=== PATIENT | male | born 1955 | race Caucasian/White ===

== ENCOUNTER → 2019-12-10 | Outpatient (CLI) | payer OTHER ==
[~2019-12-10] MED LIST: IBUP200T77 PO; TIOT18CA IH
== END | disposition home or self-care (01) ==
LOC: LAB 15:36
PROVIDERS: ATTEND Orthopaedic Surgery Sports Medicine
DX: Z11.59 Encounter for screening for other viral diseases (principal)
CPT/HCPCS: U0003-CS

== ENCOUNTER 2019-12-15 05:55 | Day surgery (SDC) | payer OTHER ==
[~2019-12-15] VITALS: Ht 188 cm; Wt 82.6 kg
[2019-12-15] MEDS ORDERED: IV RINGERS,LACTATED 1000ML 1,000 ML IV SCH (07:00)
[2019-12-15] MEDS ORDERED: fentaNYL PF VIAL 100 MCG/2 ML VIAL IV PRN (07:00)
[2019-12-15] MEDS ORDERED: PROCHLORPERAZINE 10 MG/2 ML VIAL. IV PRN (07:00)
[2019-12-15] MEDS ORDERED: ONDANSETRON PF 4 MG/2 ML VIAL. IV PRN (07:00)
[2019-12-15] MEDS ORDERED: ceFAZolin 2GM PREMIX 2 GM/50 ML BAG IV ONE (07:00)
[2019-12-15] MEDS ORDERED: HYDROmorphone 2 MG/ML VIAL IV PRN (07:00)
[2019-12-15] MEDS ORDERED: LIDOCAINE 2% PF 5 ML VIAL. ONE (07:04)
[2019-12-15] MEDS ORDERED: PROPOFOL 10 MG/ML (20ML) VIAL. IV ONE (07:04)
[2019-12-15] MEDS ORDERED: ROCURONIUM 50 MG/5 ML VIAL. ONE (07:05)
[2019-12-15] MEDS ORDERED: BUPIVACAINE MPF 0.5% 30 ML VIAL. ONE ×2 (07:05→07:10)
[2019-12-15] MEDS ORDERED: MIDAZOLAM HCL/PF 2 MG/2 ML VIAL. ONE (07:05)
[2019-12-15] MEDS ORDERED: fentaNYL PF VIAL 100 MCG/2 ML VIAL ONE ×2 (07:05→09:37)
[2019-12-15] MEDS ORDERED: LIDOCAINE 1% Multi-Dose 20 ML VIAL. ONE (07:10)
[2019-12-15] MEDS ORDERED: EPINEPHrine VIAL 30 MG/30 ML VIAL ONE (07:17)
--- NOTE | 2019-12-15 07:31 | DISCH ---
DISCHARGE INSTRUCTIONS Condition on Discharge Condition on Discharge: Stable Activity After Discharge Activity Instructions for Disc: Other, see below Other activity instructions: arm to remain in sling Bathing Instructions: Shower-keep dressing dry Weight Bearing Status after Di: Non weight bearing Diet after Discharge Diet after Discharge: Regular Wound Incision Care Wound/Incision Care: Ice to area for comfort, Keep wound/cast CDI, Change dressing Other wound/incision instructi: ok to change dressing after 2 days Contacting the DRNadira after DC Call your doctor for: Concerns you may have Follow-Up Follow up with: Darya in 2 wks LUZMA WEAVER II, MD Dec 15, 2019 07:31
[2019-12-15] MEDS ORDERED: PHENYLEPHRINE 10 MG/ML VIAL. ONE (07:47)
[2019-12-15] MEDS ORDERED: ONDANSETRON PF 4 MG/2 ML VIAL. ONE (07:47)
[2019-12-15] MEDS ORDERED: DEXAMETHASONE SOD PHOS 4 MG/ML VIAL ONE (07:47)
[2019-12-15] MEDS ORDERED: HYDROmorphone 2 MG/ML VIAL ONE (08:29)
[2019-12-15] MEDS ORDERED: NEOSTIGMINE METHYLSULFATE 5 MG/5 ML SYRINGE. ONE (08:41)
[2019-12-15] MEDS ORDERED: GLYCOPYRROLATE 1 MG/5 ML VIAL. ONE (08:42)
--- NOTE | 2019-12-15 09:24 | PDOC4 ---
Operative Note Operative Note Date of procedure: 12/15/2019 Surgeon: Jerm[facility] [employer] Foreman: Milind Cobos Preoperative diagnosis: Left rotator cuff tear Postoperative diagnosis: Same Procedure performed: Arthroscopic left rotator cuff repair Anesthesia: General plus regional nerve block Findings: #1 large rotator cuff tear, supraspinatus and infraspinatus, retracted to mid humeral head 2. Minimal grade 1 changes at glenohumeral joint cartilage 3. No loose bodies 4. Labrum intact circumferentially 5. Biceps tendon unremarkable pathology Complications: None Blood loss: 5 mL Components inserted: [employer] helacoil x 3, footprint for lateral row fixation x 2 Reason for procedure: Patient is a very pleasant gentleman who had a fall while at work onto an outstretched left upper extremity and had pain and dysfunction at his left shoulder secondary to this. Prior to this injury he had no shoulder complaints. Clinical and radiographic examination including MRI were consistent with the preoperative diagnosis and we discussed proceeding with rotator cuff repair as conservative therapies had not helped. Description of procedure: Patient was greeted in the preoperative area by myself or the correct extremity was verified and marked. He was taken to the operative suite after placement of a regional nerve block by the anesthesiology team. Once in the operating room, he was transferred gently supine to the operating table and had successful induction of a general anesthetic. We then set him up in a beachchair position, maintaining C-spine in a neutral position and he had a large pad under his legs. We then proceeded to prep and drape left upper extremity and shoulder girdle in our usual sterile fashion including Ioban at the periphery. I then palpated marked surface anatomy and zeina lines for my planned portals. I then incised skin after localizing a posterior superior portal with a spinal needle and introduce my blunt arthroscopic trocar into the glenohumeral joint. I then used a spinal needle to localize an anterosuperior portal, incising skin in accordance with this and dilating this hole. I then introduced my probe into the glenohumeral joint and conducted my diagnostic arthroscopy with above-noted findings. After this, used a spinal needle to localize a lateral portal and introduced my shaver to debride the footprint from the intra-articular vantage point as well as debride the rotator cuff tendon. I then reposition my camera into the subacromial space and using combination of shaver and electrocautery device performed a bursectomy. I then inspected the rotator cuff tear from this point, it was easily mobile. I then began to place my 3 anchors from posterior to anterior. It should be noted I had created an accessory anterolateral posterior lateral portals for suture management. After placing my 3 anchors, I began to shuttle them through in a simple configuration using my suture passing device. Once they were all shuttle, I began to tie them down from posterior to anterior, saving one limb from each to incorporate into my lateral row repair. After tying them all down, I took 3 sutures from po sterior and incorporate these into a footprint device for lateral fixation and then repeated this maneuver more anteriorly from anterior 3 sutures. The tear was stable to probing and gentle rotation of the arm. All excess arthroscopic fluid and any loose debris was removed with the shaver at this point. We took our final pictures. We removed the remainder of the arthroscopic fluid and equipment. The portals were closed with simple interrupted 3-0 nylon. Patient tolerated surgery well. No complications. At the conclusion, the arm was cleansed and dried a sterile dressing was applied followed by an abduction pillow sling. He was laid supine and transferred gently supine to the recovery room cart and taken to the PACU in stable and extubated condition. Postoperative plan is to discharge him home, nonweightbearing, his arms to remain in sling. We will get him started on PT when I see him in 2 weeks. JERMAINE WEAVER II, MD Dec 15, 2019 09:24
[2019-12-15] MEDS ORDERED: OXYC1TAB15 PO (09:34)
[2019-12-15] MEDS ORDERED: ONDA8TAB9 PO (09:37)
[2019-12-15] MEDS ORDERED: DOCU-109 PO (09:37)
[2019-12-15] MEDS: fentaNYL PF VIAL 100 MCG/2 ML VIAL IV PRN ×2 (09:39→09:44)
[2019-12-15] MEDS ORDERED: oxyCODONE/APAP 5/325 1 TAB TABLET PO ONE (09:45)
[2019-12-15] MEDS ORDERED: MORPHINE SULFATE 2 MG/ML VIAL. ONE (09:52)
[2019-12-15] MEDS: MORPHINE SULFATE 2 MG/ML VIAL. IV PRN ×2 (09:55→10:01)
[2019-12-15 10:20] VITALS: BP 140/80
== END 2019-12-15 10:55 | disposition home or self-care (01) ==
LOC: SURG 05:55 → EDUNIT# 07:30 → SURG 10:55
PROVIDERS: ATTEND Orthopaedic Surgery Sports Medicine
DX: M75.102 Unspecified rotator cuff tear or rupture of left shoulder, not specified as traumatic (principal); Z79.899 Other long term (current) drug therapy
CPT/HCPCS: 29827; 36415; 64415; 82306; A7015; C1713; J0171; J0690; J1100; J1170; J2250; J2270; J2370; J2405; J2704; J2710; J3010; J3490